=== PATIENT | male | born 1955 | race Caucasian/White ===

== ENCOUNTER 2018-01-06 06:41 | Emergency (ER) | payer SELFPAY ==
[~2018-01-06] VITALS: Ht 177.8 cm; Wt 113.4 kg
[2018-01-06 06:48] VITALS: Ht 177.8 cm; Wt 113.4 kg
[2018-01-06 07:51] LABS: BASOPHIL % 0.3 % (0-2); PLATELET COUNT 224 x10^3mcL (130-400); RED CELL DISTRIBUTION WIDTH 14.4 % (11.5-14.5)
[2018-01-06 08:04] LABS: CALCIUM 8.9 mg/dL (8.5-10.1); CARBON DIOXIDE 25.9 mmol/L (21-32); CHLORIDE SERUM 109 mmol/L (98-107); CREATININE SERUM 0.7 mg/dL (0.7-1.3); GFR1 > 60 mL/min; GLUCOSE SERUM 103 mg/dL (74-106); POTASSIUM SERUM 4.2 mmol/L (3.5-5.1); SODIUM SERUM 145 mmol/L (136-145)
[2018-01-06 08:09] LABS: ALBUMIN 3.5 g/dL (3.4-5.0); ALKALINE PHOSPHATASE 78 U/L (46-116); ALT/SGPT 34 U/L (16-63); AST/SGOT 18 U/L (15-37); BILIRUBIN TOTAL 0.57 mg/dL (0.20-1.00)
[2018-01-06 09:27] VITALS: BP 129/89
== END 2018-01-06 09:27 | disposition home or self-care (01) ==
LOC: ED 06:41
PROVIDERS: Emergency Medicine
DX: M79.672 Pain in left foot (principal); M79.671 Pain in right foot
CPT/HCPCS: 36415; G0480

== ENCOUNTER 2018-01-12 01:29 | Emergency (ER) | payer SELFPAY ==
[~2018-01-12] VITALS: Ht 167.6 cm; Wt 90.7 kg
[2018-01-12 02:19] VITALS: BP 135/55
== END 2018-01-12 02:19 | disposition home or self-care (01) ==
LOC: ED 01:29
DX: M54.9 Dorsalgia, unspecified (principal); M79.1 Myalgia; J45.909 Unspecified asthma, uncomplicated
CPT/HCPCS: J1885

== ENCOUNTER 2018-01-12 17:47 | Inpatient (IN) | payer OTHER ==
[~2018-01-12] VITALS: Ht 170.2 cm; Wt 126.7 kg
[2018-01-12 17:54] VITALS: Ht 170.2 cm; Wt 126.7 kg
[2018-01-12 19:21] LABS: CALCIUM 8.6 mg/dL (8.5-10.1); CARBON DIOXIDE 28.7 mmol/L (21-32); CHLORIDE SERUM 106 mmol/L (98-107); CREATININE SERUM 1.1 mg/dL (0.7-1.3); GFR1 > 60 mL/min; GLUCOSE SERUM 104 mg/dL (74-106); POTASSIUM SERUM 4.1 mmol/L (3.5-5.1); SODIUM SERUM 138 mmol/L (136-145)
[2018-01-12 19:23] LABS: BASOPHIL % 0.6 % (0-2); PLATELET COUNT 229 x10^3mcL (130-400); RED CELL DISTRIBUTION WIDTH 14.4 % (11.5-14.5)
[2018-01-12 19:26] LABS: ALKALINE PHOSPHATASE 103 U/L (46-116); ALT/SGPT 35 U/L (16-63); AST/SGOT 16 U/L (15-37); BILIRUBIN TOTAL 0.26 mg/dL (0.20-1.00); TOTAL PROTEIN, SERUM 6.8 g/dL (6.4-8.2)
[2018-01-12 19:27] LABS: ALBUMIN 3.3 g/dL (3.4-5.0)
[2018-01-12 20:41] LABS: microscopic required? NO
[2018-01-12 20:59] LABS: urine erythrocyte NEGATIVE (NEGATIVE)
[2018-01-12 21:04] LABS: AMPHETAMINE QUAL UR NONE DETECTED (See below)
[2018-01-13 17:04] VITALS: BP 138/73
[2018-01-13 17:23] LABS: PHOSPHOROUS 4.5 mg/dL (2.5-4.9)
[2018-01-13 17:34] LABS: FREE T4 0.85 ng/dL (0.76-1.46); FREE THYROXINE INDEX 2.1 ug/dL (1.4-4.5); T3 TOTAL 1.01 ng/mL; T4(THYROXINE) 5.9 ug/dL (4.7-13.3)
[2018-01-13 20:43] VITALS: BP 126/69
[2018-01-14 05:09] VITALS: BP 121/67
[2018-01-14 06:08] LABS: BASOPHIL % 0.5 % (0-2); PLATELET COUNT 207 x10^3mcL (130-400)
[2018-01-14 06:40] LABS: CALCIUM 8.6 mg/dL (8.5-10.1); CARBON DIOXIDE 26.6 mmol/L (21-32); CHLORIDE SERUM 106 mmol/L (98-107); CREATININE SERUM 0.7 mg/dL (0.7-1.3); GFR1 > 60 mL/min; GLUCOSE SERUM 92 mg/dL (74-106); PHOSPHOROUS 3.5 mg/dL (2.5-4.9); POTASSIUM SERUM 3.9 mmol/L (3.5-5.1); SODIUM SERUM 140 mmol/L (136-145)
[2018-01-14 06:44] LABS: RED CELL DISTRIBUTION WIDTH 14.8 % (11.5-14.5)
[2018-01-14 09:02] VITALS: BP 147/71
[2018-01-14 09:45] VITALS: BP 155/81
[2018-01-14 21:45] VITALS: BP 155/81
[2018-01-15 06:12] VITALS: BP 142/77
[2018-01-15 06:35] LABS: CALCIUM 8.8 mg/dL (8.5-10.1); CARBON DIOXIDE 25.9 mmol/L (21-32); CHLORIDE SERUM 107 mmol/L (98-107); CREATININE SERUM 0.7 mg/dL (0.7-1.3); GFR1 > 60 mL/min; GLUCOSE SERUM 98 mg/dL (74-106); MAGNESIUM 2.2 mg/dL (1.8-2.4); POTASSIUM SERUM 4.1 mmol/L (3.5-5.1); SODIUM SERUM 141 mmol/L (136-145)
[2018-01-15 06:36] LABS: BASOPHIL % 0.3 % (0-2); PLATELET COUNT 221 x10^3mcL (130-400); RED CELL DISTRIBUTION WIDTH 14.3 % (11.5-14.5)
[2018-01-15 08:01] VITALS: BP 140/66
[2018-01-15 17:04] VITALS: BP 132/75
[2018-01-15 20:24] VITALS: BP 124/72
[2018-01-16 04:53] VITALS: BP 126/66
[2018-01-16 09:32] VITALS: BP 121/60
[2018-01-16 17:04] VITALS: BP 120/77
[2018-01-16 20:40] VITALS: BP 132/82
[2018-01-17 05:24] VITALS: BP 133/67
[2018-01-17 09:15] VITALS: BP 134/68
[2018-01-17 17:30] VITALS: BP 115/62
[2018-01-17 20:53] VITALS: BP 118/65
[2018-01-18 05:54] VITALS: BP 114/63
[2018-01-18 08:57] VITALS: BP 129/72
[2018-01-18 17:48] VITALS: BP 156/97
[2018-01-18 20:20] VITALS: BP 136/86
[2018-01-19 05:54] VITALS: BP 124/82
[2018-01-19 08:42] VITALS: BP 132/67
[2018-01-19 16:43] VITALS: BP 117/69
[2018-01-19 21:01] VITALS: BP 126/72
[2018-01-20 05:31] VITALS: BP 112/58
[2018-01-20 08:12] VITALS: BP 117/60
[2018-01-20 11:57] VITALS: BP 120/62
[2018-01-20 16:11] VITALS: BP 120/62
[2018-01-20 21:08] VITALS: BP 140/80
[2018-01-21 05:24] VITALS: BP 134/74
[2018-01-21 08:26] VITALS: BP 113/58
[2018-01-21 13:55] VITALS: BP 113/58
[2018-01-21 16:32] VITALS: BP 121/67
== END 2018-01-21 17:07 | disposition home or self-care (01) | DRG 751 ==
LOC: ED 17:47 → EDBD 01-13 16:07 → MU 01-13 16:07
PROVIDERS: Emergency Medicine; Internal Medicine
DX: F23 Brief psychotic disorder (principal); N17.0 Acute kidney failure with tubular necrosis; F79 Unspecified intellectual disabilities; E02 Subclinical iodine-deficiency hypothyroidism; F17.210 Nicotine dependence, cigarettes, uncomplicated; J45.909 Unspecified asthma, uncomplicated; R45.851 Suicidal ideations; F03.90 Unspecified dementia, unspecified severity, without behavioral disturbance, psychotic disturbance, mood disturbance, and anxiety; E44.1 Mild protein-calorie malnutrition; E66.9 Obesity, unspecified; Z68.41 Body mass index [BMI] 40.0-44.9, adult
CPT/HCPCS: 84439; G0480; J3486